=== PATIENT | male | born 1975 | race Caucasian/White ===

== ENCOUNTER 2017-04-14 11:08 | Emergency (ER) | payer OTHER ==
[~2017-04-14] VITALS: Ht 170.2 cm; Wt 79.3 kg
[2017-04-14 12:06] LABS: HEMATOCRIT 43.9 % (38.0-50.0); HEMOGLOBIN 15.3 G/DL (12.5-16.6); MCH 30.9 PG (29.0-34.0); MCHC 34.9 G/DL (30.0-36.0); MCV 88.7 FL (86-99); PLATELET COUNT 291 K/uL (156-360); RBC DIS.WIDTH-CV 12.1 % (11.8-14.6); RBC DIS.WIDTH-SD 39.8 % (39-53); RED BLOOD COUNT 4.95 M/uL (4.00-5.50); WHITE BLOOD COUNT 9.7 K/uL (4.1-10.2)
[2017-04-14 12:24] LABS: ALBUMIN 4.5 g/dL (3.2-4.8); CHLORIDE 108 mEq/L (99-109); POTASSIUM 4.8 mEq/L (3.7-5.4); SODIUM 141 mEq/L (136-147)
[2017-04-14 12:27] LABS: GLUCOSE 88 mg/dL (70-99); TOTAL PROTEIN 7.4 g/dL (6.4-8.3)
[2017-04-14 12:30] LABS: ALKALINE PHOSPHATASE 80 IU/L (3-129); GFR ESTIMATE (CALCULATED) > 59 mL/min/ (58.99-99999)
[2017-04-14 12:31] LABS: UREA NITROGEN (BUN) 10 mg/dL (9-23)
[2017-04-14 12:32] LABS: AST (GOT) 19 IU/L (2-34)
[2017-04-14 12:33] LABS: ALT (GPT) 18 IU/L (3-49)
[2017-04-14 13:13] LABS: LIPASE 19 U/L (1.0-51.0)
[2017-04-14 13:58] LABS: TROP-I INTERPRETATION NEGATIVE; TROPONIN-I < 0.01 ng/mL (0.0-0.30)
[2017-04-14] MEDS ORDERED: PHENERGAN25 MG PR (14:48)
[2017-04-14] MEDS ORDERED: NEXIUM40 MG PO (14:48)
[2017-04-14 15:14] VITALS: BP 119/72
== END 2017-04-14 15:18 | disposition home or self-care (01) ==
LOC: EME 11:08
DX: K29.70 Gastritis, unspecified, without bleeding (principal); F41.9 Anxiety disorder, unspecified
CPT/HCPCS: 74177; 80053; 81003; 83690; 84484; 85027; 93005; 99281; 99285; J7030

== ENCOUNTER 2017-05-04 10:24 | Emergency (ER) | payer OTHER ==
[~2017-05-04] VITALS: Ht 180.3 cm; Wt 78.0 kg
[~2017-05-04 10:24] MED LIST: LEVOTHYROXINE50 MCG PO; LEXAPRO20 MG PO; NEXIUM40 MG PO; PHENERGAN25 MG PR
[2017-05-04 12:24] LABS: CHLORIDE 110 mEq/L (99-109); POTASSIUM 4.2 mEq/L (3.7-5.4); SODIUM 138 mEq/L (136-147)
[2017-05-04 12:26] LABS: GLUCOSE 79 mg/dL (70-99)
[2017-05-04 12:30] LABS: CREATININE 0.8 mg/dL (0.6-1.3); GFR ESTIMATE (CALCULATED) > 59 mL/min/ (58.99-99999); UREA NITROGEN (BUN) 8 mg/dL (9-23)
[2017-05-04 12:48] LABS: HEMATOCRIT 38.2 % (38.0-50.0); MCH 30.6 PG (29.0-34.0); MCHC 34.6 G/DL (30.0-36.0); MCV 88.4 FL (86-99); RBC DIS.WIDTH-CV 11.9 % (11.8-14.6); RBC DIS.WIDTH-SD 38.5 % (39-53); RED BLOOD COUNT 4.32 M/uL (4.00-5.50); WHITE BLOOD COUNT 4.9 K/uL (4.1-10.2)
[2017-05-04 12:51] LABS: HEMOGLOBIN 13.2 G/DL (12.5-16.6)
[2017-05-04 13:02] LABS: TROP-I INTERPRETATION NEGATIVE; TROPONIN-I < 0.01 ng/mL (0.0-0.30)
[2017-05-04 13:57] LABS: ABS NEUTROPHIL COUNT 3.3; ATYPICAL LYMPHOCYTE 3.5 %; BASOPHILS 0.9 %; EOSINOPHIL ABS CT 0; EOSINOPHILS 0.9 % (0-5.0); LYMPHOCYTES 19.3 % (15.0-45.0); MONOCYTES 8.8 % (0-9.0); PLAT.SUFFICIENCY ADEQUATE; SEG.NEUTROPHILS 66.6 % (46.0-76.0)
[2017-05-04 14:05] LABS: PLATELET COUNT 200 K/uL (156-360)
[2017-05-04 14:22] VITALS: BP 109/68
== END 2017-05-04 14:25 | disposition home or self-care (01) ==
LOC: EME 10:24 → AMB 10:24 → EDSTATUS 10:30 → EME 14:25
PROVIDERS: Emergency Medicine; Internal Medicine Gastroenterology
DX: R00.1 Bradycardia, unspecified (principal); E03.9 Hypothyroidism, unspecified; F41.9 Anxiety disorder, unspecified; Z87.891 Personal history of nicotine dependence
CPT/HCPCS: 71045; 80048; 80048 91; 84484; 85025; 93005

== ENCOUNTER 2017-10-09 17:08 | Observation (INO) | payer OTHER ==
[~2017-10-09] VITALS: Ht 180.3 cm; Wt 70.5 kg
[~2017-10-09 17:08] MED LIST changes: +NEXIUM 24HR20 M1 PO
[2017-10-09 18:12] LABS: BASOPHIL (%) 0.2 % (0-1); EOSINOPHIL (%) 0 % (0-5); HEMATOCRIT 39.8 % (38.0-50.0); HEMOGLOBIN 14.4 G/DL (12.5-16.6); IMMATURE GRANULOCYTE (%) 0.3 % (0.0-0.7); LYMPHOCYTE (%) 2.7 % (15-42); LYMPHOCYTE COUNT 0.4 K/uL (1.0-2.8); MCH 30.3 PG (29.0-34.0); MCHC 36.2 G/DL (30.0-36.0); MCV 83.6 FL (86-99); MONOCYTE (%) 4.7 % (3-12); MONOCYTE COUNT 0.6 K/uL (0-0.8); NEUTROPHIL (%) 92.1 % (45-76); NEUTROPHIL COUNT 12.1 K/uL (1.8-6.4); PLATELET COUNT 253 K/uL (156-360); RBC DIS.WIDTH-CV 12.1 % (11.8-14.6); RBC DIS.WIDTH-SD 37.1 % (39-53); RED BLOOD COUNT 4.76 M/uL (4.00-5.50); WHITE BLOOD COUNT 13.1 K/uL (4.1-10.2)
[2017-10-09 18:29] LABS: ALBUMIN 4.8 g/dL (3.2-4.8); CHLORIDE 111 mEq/L (99-109); POTASSIUM 3.5 mEq/L (3.7-5.4); SODIUM 146 mEq/L (136-147)
[2017-10-09 18:32] LABS: GLUCOSE 143 mg/dL (70-99); TOTAL PROTEIN 7.8 g/dL (6.4-8.3)
[2017-10-09 18:34] LABS: TOTAL BILIRUBIN 1.2 mg/dL (0.0-1.0)
[2017-10-09 18:35] LABS: ALKALINE PHOSPHATASE 75 IU/L (3-129); CREATININE 1.1 mg/dL (0.6-1.3); GFR ESTIMATE (CALCULATED) > 59 mL/min/ (58.99-99999)
[2017-10-09 18:36] LABS: UREA NITROGEN (BUN) 13 mg/dL (9-23)
[2017-10-09 18:37] LABS: AST (GOT) 19 IU/L (2-34)
[2017-10-09 18:38] LABS: ALT (GPT) 21 IU/L (3-49)
[2017-10-09 18:39] LABS: LIPASE 10 U/L (1.0-51.0)
[2017-10-09] MEDS ORDERED: PROBIOTIC1 EAC1 PO (21:22)
[2017-10-09] MEDS ORDERED: SYNTHROID50 MCG PO (21:22)
[2017-10-09] MEDS ORDERED: NEXIUM 24HR20 M2 PO (21:22)
[2017-10-09] MEDS ORDERED: ESCITALOPRAM OX20 MG PO (21:22)
[2017-10-09 23:30] VITALS: BP 91/55
[2017-10-10 03:49] VITALS: BP 100/50
[2017-10-10 08:00] VITALS: BP 146/71
[2017-10-10 16:19] VITALS: BP 127/68
[2017-10-10 19:06] LABS: APPEARANCE CLEAR ((CLEAR)); BILIRUBIN NEGATIVE; BLOOD NEGATIVE; COLOR YELLOW ((YELLOW)); GLUCOSE (STRIP) NEGATIVE; KETONES 20; LEUKOCYTES NEGATIVE; NITRITE NEGATIVE; PROTEIN (STRIP) NEGATIVE; UCUL ADDED? NO; UROBILINOGEN 0.2 MG/DL (0.2-1.0)
[2017-10-10 20:35] VITALS: BP 93/55
[2017-10-10 23:26] VITALS: BP 138/65
[2017-10-11 03:51] VITALS: BP 138/65
[2017-10-11 05:26] LABS: BASOPHIL (%) 0.4 % (0-1); EOSINOPHIL (%) 0 % (0-5); HEMATOCRIT 36.6 % (38.0-50.0); HEMOGLOBIN 12.6 G/DL (12.5-16.6); IMMATURE GRANULOCYTE (%) 0.4 % (0.0-0.7); LYMPHOCYTE (%) 11.3 % (15-42); LYMPHOCYTE COUNT 1.3 K/uL (1.0-2.8); MCH 29.6 PG (29.0-34.0); MCHC 34.4 G/DL (30.0-36.0); MCV 86.1 FL (86-99); MONOCYTE (%) 15.5 % (3-12); MONOCYTE COUNT 1.8 K/uL (0-0.8); NEUTROPHIL (%) 72.4 % (45-76); NEUTROPHIL COUNT 8.2 K/uL (1.8-6.4); PLATELET COUNT 229 K/uL (156-360); RBC DIS.WIDTH-CV 12.4 % (11.8-14.6); RBC DIS.WIDTH-SD 38.9 % (39-53); RED BLOOD COUNT 4.25 M/uL (4.00-5.50); WHITE BLOOD COUNT 11.3 K/uL (4.1-10.2)
[2017-10-11 05:53] LABS: CHLORIDE 103 MEQ/L (99-109); CREATININE 0.8 MG/DL (0.6-1.3); GFR ESTIMATE (CALCULATED) > 59 mL/min/ (58.99-99999); POTASSIUM 3.6 MEQ/L (3.7-5.4); UREA NITROGEN (BUN) 8 mg/dL (9-23)
[2017-10-11 06:13] LABS: GLUCOSE 92 mg/dL (70-99); SODIUM 138 MEQ/L (136-147)
[2017-10-11 07:40] LABS: THYROTROPIN (TSH) 3.5 MIU/L (0.4-5.5)
[2017-10-11 07:52] VITALS: BP 153/76
[2017-10-11 11:25] VITALS: BP 158/84
[2017-10-11] MEDS ORDERED: BENTYL20 MG PO (12:32)
== END 2017-10-11 13:48 | disposition home or self-care (01) ==
LOC: EME 17:08 → 4SOUTH 21:56 → EDOF 21:56 → ENRESERV 21:59 → 4SOUTH 23:12
PROVIDERS: Internal Medicine; Physician Assistant; Physician Assistant Medical
DX: K29.70 Gastritis, unspecified, without bleeding (principal); R11.2 Nausea with vomiting, unspecified; R19.7 Diarrhea, unspecified; R00.1 Bradycardia, unspecified; F41.1 Generalized anxiety disorder; R63.4 Abnormal weight loss; R10.32 Left lower quadrant pain; R10.31 Right lower quadrant pain; K31.7 Polyp of stomach and duodenum; E03.9 Hypothyroidism, unspecified; E87.6 Hypokalemia; D72.829 Elevated white blood cell count, unspecified
CPT/HCPCS: 74177; 76705; 80048; 80053; 81003; 83690; 84443; 85025; 93005; 99281; 99285; C9113; G0378; J1630; J2060; J2405; J2550; J2765; J3480; J7030; J7120

== ENCOUNTER → 2017-10-24 | Outpatient (CLI) | payer OTHER ==
[~2017-10-24] VITALS: Ht 180.3 cm; Wt 68.0 kg
[~2017-10-24] MED LIST changes: +BENTYL20 MG PO; +ESCITALOPRAM OX20 MG PO; +NEXIUM 24HR20 M2 PO; +PROBIOTIC1 EAC1 PO; +SYNTHROID50 MCG PO
== END | disposition home or self-care (01) ==
LOC: AMB 09:45
PROC: 0DBE8ZX Excision of Large Intestine, Via Natural or Artificial Opening Endoscopic, Diagnostic (ICD-10-PCS; principal; 2017-10-24)
DX: R10.12 Left upper quadrant pain (principal); R63.4 Abnormal weight loss; R94.31 Abnormal electrocardiogram [ECG] [EKG]
CPT/HCPCS: 88305; J2250